=== PATIENT | male | born 1950 | race Caucasian/White ===

== ENCOUNTER 2019-08-07 21:21 | Emergency (ER) | payer OTHER, MEDICAID ==
[~2019-08-07] VITALS: Ht 172.7 cm; Wt 68.0 kg
[~2019-08-07 21:21] MED LIST: BENA20TA9 PO; BUSP10TA3 PO; LAMO200T2 PO; METO25TA6 PO; MIRT15TA7 PO; OLAN20TA35 PO; TRAZ-219 PO
[2019-08-07 21:25] VITALS: BP_SYST 147
--- NOTE | 2019-08-07 21:35 | NUR ---
Patient to ER bed 4 to gown for evaluation. Side rails up. Report given to [facility].
--- NOTE | 2019-08-07 22:00 | NUR ---
Pt BIB EMS from [facility] with c/o back pain and ETOH. Pt states he has drank vodka for 10 days straight. Pt states he ran out of vodka yesterday. Pt states he fractured back 2 years ago. Pt states pain 04/17. Pt states chronic back pain. Pt states he has "random shaking." Upon assessment, pt has intermittent bilateral hand shaking. Breath sounds bilateral clear with no use of accessory muscle use. Will continue to monitor.
--- NOTE | 2019-08-07 22:10 | NUR ---
ER at bedside examining patient.
--- NOTE | 2019-08-07 22:17 | NUR ---
ER Dr. Lambert at bedside examining patient.
[2019-08-07] MEDS ORDERED: LORazepam 2 MG/ML VIAL IVP ONE (22:30)
[2019-08-07] MEDS ORDERED: KETOROLAC TROMETHAMINE 30 MG VIAL IVP ONE (22:30)
[2019-08-07] MEDS ORDERED: NACL 0.9% 1,000 ML IV ONE (22:30)
--- NOTE | 2019-08-07 22:42 | NUR ---
# 18 gauge angiocath placed to rt upper arm. Use of asceptic technique. Opsite placed over site. Blood return noted. Blood for lab drawn from site. Flushed with 10 cc of normal saline. No evidence of infiltration noted. Patient tolerated well.
--- NOTE | 2019-08-07 22:50 | NUR ---
Pt medicated per MD orders. Pt tolerated well. Will continue to monitor.
[2019-08-07 23:11] LABS: CALCIUM 8.7 mg/dL (8.4-11.0); CREATININE 0.68 mg/dL (0.55-1.30); POTASSIUM 3.3 mmol/L (3.5-5.1)
[2019-08-07 23:16] LABS: BASOPHILS # (AUTO) 0.1 K/uL (0.0-0.2); HEMOGLOBIN 16.3 g/dL (14.0-18.0); MEAN CORPUSCULAR HGB CONC 34 % (32-36); MEAN CORPUSCULAR VOLUME 96 fL (79.0-98.0); MONOCYTES # (AUTO) 1.1 K/uL (0.0-1.0)
[2019-08-07 23:20] LABS: ALBUMIN 4.4 g/dL (3.4-4.8); TOTAL BILIRUBIN 1.6 mg/dL (0.0-1.0)
--- NOTE | 2019-08-07 23:21 | NUR ---
Pt requests water. MD aware and states pt is allowed to have water. Ice water provided.
[2019-08-07 23:23] LABS: BASOPHILS % (AUTO) 0.4 % (0.0-2.0); LYMPHOCYTES # (AUTO) 2.8 K/uL (1.0-5.5); LYMPHOCYTES % (AUTO) 18.6 % (20.5-51.5); MEAN CORPUSCULAR HEMOGLOBIN 33 pg (27-31); MONOCYTES % (AUTO) 6.9 % (1.7-9.3); NEUTROPHILS # (AUTO) 11.2 K/uL (1.8-7.7); NEUTROPHILS % (AUTO) 74.1 % (40.0-70.0); PLATELET COUNT (AUTO) 244 K/uL (130-430); RED BLOOD CELL COUNT(AUTO) 4.98 MIL/uL (4.2-6.2); RED CELL DISTRIBUTION WIDTH 12.9 % (9.0-15.0); WHITE BLOOD COUNT (AUTO) 15.2 K/uL (4.8-10.8)
--- NOTE | 2019-08-08 00:40 | NUR ---
Pt medicated per MD orders. Pt tolerated well.
[2019-08-08] MEDS ORDERED: ACETAMINOPHEN 500 MG TABLET PO ONE (00:45)
--- NOTE | 2019-08-08 00:56 | NUR ---
Spoke with Juliette Tinoco, pt . Pt would like to be updated on pt status and left phone number: [phone].
[2019-08-08 01:53] LABS: BILIRUBIN,URINE NEGATIVE (NEGATIVE); BLOOD, URINE 1+ (NEGATIVE); CLARITY/URINE CLEAR (CLEAR); COLOR,URINE YELLOW (YELLOW); GLUCOSE,URINE NEGATIVE (NEGATIVE); KETONES,URINE 1+ (NEGATIVE); LEUKOCYTE ESTERASE ,URINE NEGATIVE (NEGATIVE); NITRITE, URINE NEGATIVE (NEGATIVE); PROTEIN URINE TRACE (NEGATIVE)
[2019-08-08 01:59] LABS: BACTERIA,URINE FEW /HPF (None Seen); WBC,URINE 0-3 /HPF (0-3)
[2019-08-08 02:05] LABS: CANNABINOID, URINE POSITIVE (NEG <=50)
[2019-08-08 02:06] LABS: BARBITURATE, URINE NEGATIVE (NEG <=200); BENZODIAZEPINE, URINE POSITIVE (NEG <=150); COCAINE, URINE NEGATIVE (NEG <=150); METHAMPHETAMINES SCREEN,URINE NEGATIVE (NEG <=500); OPIATE, URINE NEGATIVE (NEG <=100); PHENCYCLIDINE SCREEN,URINE NEGATIVE (NEG <=25); UR TRICYCLIC ANTIDEPRESSANTS NEGATIVE (NEG <=300); URINE AMPHETAMINE NEGATIVE (NEG <=500); URINE METHADONE NEGATIVE (NEG <=200); URINE OXYCODONE SCREEN NEGATIVE (NEG <=100); URINE PROPOXYPHENE SCREEN NEGATIVE (NEG <=300)
--- NOTE | 2019-08-08 02:09 | NUR ---
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
--- NOTE | 2019-08-08 02:20 | NUR ---
Patient given written and verbal discharge instructions and verbalizes understanding. ER MD discussed with patient the results and treatment provided. Patient in stable condition. ID arm band removed. IV catheter removed intact and dressing applied, no active bleeding. Rx of LIBRIUM given. Patient educated on pain management and to follow up with PMD. Pain Scale 2/10. Opportunity for questions provided and answered. Medication side effect fact sheet provided.
[2019-08-08 02:34] VITALS: BP_SYST 139
== END 2019-08-08 02:34 | disposition home or self-care (01) ==
LOC: SED 21:21
DX: F10.129 Alcohol abuse with intoxication, unspecified (principal); I10 Essential (primary) hypertension; Z86.19 Personal history of other infectious and parasitic diseases; Z79.899 Other long term (current) drug therapy; Z88.8 Allergy status to other drugs, medicaments and biological substances; Y90.6 Blood alcohol level of 120-199 mg/100 ml
CPT/HCPCS: 36415; 80053; 80307; 81000; 85025; 96374; 96375; 99283; G0482; J1885; J2060; J7030